=== PATIENT | female | born 1970 | race Caucasian/White ===

== ENCOUNTER → 2018-10-30 | Day surgery (SDC) | payer OTHER ==
[~2018-10-30] MED LIST: ATENOLOL50 MG PO; BENICAR20 MG PO; ESMOLOL HCL 100MG/10ML 10 MG/ML VIAL ONE; FENTANYL CITRATE/PF 100MCG/2 ML INJ ONE; HYOSCYAMINE SULFATE 0.5 MG/ML INJ ONE; LEVOTHYROXINE50 MCG PO; LIDOCAINE HCL 2% LOCAL INJ 5 ML SDV VIAL INJ ONE; MIDAZOLAM HCL 2 MG/2 ML VIAL ONE; PROPOFOL IV EMULSION 10 MG/ML 50 ML VIAL ONE; VIT C PO; VIT D PO
[2018-10-30 15:30] VITALS: BP 111/72
--- NOTE | 2018-10-30 16:36 | Operative Report ---
DATE OF PROCEDURE: 10/30/2018 SURGEON: Jaun Valiente MD PROCEDURE: Colonoscopy and polypectomy. INDICATION FOR COLONOSCOPY: Colorectal cancer screening. MEDICATIONS: The patient was done under MAC, please see anesthesiologist's note. PROCEDURE IN DETAIL: With the patient in left lateral decubitus position, the flexible fiberoptic Olympus colonoscope was inserted into the rectum with ease and advanced all the way to the cecum. It was then withdrawn slowly. Mucosa overlying the cecum and ascending colon appeared to be within normal limits. Two polyps were removed per cold snare polypectomy and the descending appeared to be within normal limits. One polyp was removed per snare electrocautery and three polyps were hot biopsied from the sigmoid. The rectum appeared to be within normal limits. The scope was then retroflexed into the distal rectum and small internal hemorrhoids were noted, none of which was actively bleeding. The scope was then straightened out, it was subsequently withdrawn. The patient tolerated the procedure well. IMPRESSION: 1. Transverse colon polyps x2, removed per cold snare polypectomy. 2. Sigmoid colon polyps x4, one snared and three hot biopsied. 3. Internal hemorrhoids, none actively bleeding. PLAN: Follow up histology. Initiate high-fiber, low-fat diet. Initiate high-fiber supplement. The patient might benefit from a followup colonoscopy in 3 years. A total of 6 polyps were removed. Jaun Valiente MD [facility] [place] /[id number] cc: Purnima Umana MD
--- OUTSIDE RECORDS SUMMARY | 2018-11-02 11:57 | XMS REPORT | Clinical Summary ---
Author Author [facility] Organization [facility] Address Unknown Phone Unavailable Care Team Providers Care Hand Welt Butter Name Role Phone Purnima Umana MD PCP Allergies No Known Allergies Medications End Date Status Medication Sig Dispensed Refills Start Date Active atenolol (TENORMIN) 25 MG Take 25 mg by 0 tablet mouth daily. Active valsartan-hydrochlorothia Take 1 tablet 0 zide (DIOVAN HCT) 80-12.5 by mouth mg per tablet daily. Active Problems No known active problems Family History Medical History Relation Name Comments Hypertension Brother Hypertension Mother Hypertension Sister Relation Name Status Comments Brother Mother Sister Social History Date Tobacco Use Types Packs/Day Years Used Never Smoker Smokeless Tobacco: Never Used Alcohol Use Drinks/Week oz/Week Comments Yes SOCIAL Sex Assigned at Date Recorded Not on file Industry Job Start Date Occupation Not on file Not on file Not on file Travel End Travel History Travel Start No recent travel history available. Last Filed Vital Signs Not on file Plan of Treatment Health Maintenance Due Date Last Done Comments COLON CANCER SCREENING 2018 SHINGLES VACCINES (#1) 2018 BREAST CANCER SCREENING 07/03/2018 07/03/2016, 10/03/2015, 10/03/2015, Additional history exists INFLUENZA VACCINE 01/06/2019 Results Not on fileafter 11/01/2017 Insurance Type Payer Benefit Subscriber ID Effective Phone Address Plan / Dates Group PPO BCBS BCBS xxxxxxxxxxxxxxx [id number] CHOICE resent PPO/REN BARRIOS PPO Advance Directives Patient has advance care planning documents on file. For more information, kash keyes contact: Andrea Rodrigues [address] [facility] [place] [address]
--- NOTE | 2018-11-08 05:31 | Progress Note ---
DATE: MD CIAAR Singh /[id number]
== END | disposition home or self-care (01) ==
LOC: OR 10:20
PROVIDERS: ATTEND Internal Medicine Gastroenterology
DX: Z12.11 Encounter for screening for malignant neoplasm of colon (principal); K63.5 Polyp of colon; K64.8 Other hemorrhoids; K62.5 Hemorrhage of anus and rectum; E03.9 Hypothyroidism, unspecified; I10 Essential (primary) hypertension; Z01.810 Encounter for preprocedural cardiovascular examination; Z68.27 Body mass index [BMI] 27.0-27.9, adult
CPT/HCPCS: 45384; 45385; 81025; 93005; J1980; J2001; J2250; J2704

== ENCOUNTER → 2023-09-28 | Day surgery (SDC) | payer OTHER ==
[~2023-09-28] MED LIST changes: +ALLOPURINOL100 MG PO; +AMLODIPINE BESYL5 MG PO; +DEXMEDETOMIDINE HCL 200 MCG/2 ML VIAL ONE; -ESMOLOL HCL 100MG/10ML 10 MG/ML VIAL ONE; -FENTANYL CITRATE/PF 100MCG/2 ML INJ ONE; -HYOSCYAMINE SULFATE 0.5 MG/ML INJ ONE; +LACTATED RINGER'S 1,000 ML ONE; -MIDAZOLAM HCL 2 MG/2 ML VIAL ONE; +PROPOFOL IV EMULSION 10 MG/ML 50 ML VIAL IV ONE; -PROPOFOL IV EMULSION 10 MG/ML 50 ML VIAL ONE
[2023-09-28 15:40] VITALS: TEMP 97.8
[2023-09-28 16:00] VITALS: BP 108/66; PULSE 61; RESP 18; O2SAT 99
== END | disposition home or self-care (01) ==
LOC: OR 13:14
PROVIDERS: ATTEND Internal Medicine Gastroenterology
DX: Z09 Encounter for follow-up examination after completed treatment for conditions other than malignant neoplasm (principal); Z86.010 Personal history of colon polyps; R14.0 Abdominal distension (gaseous); K64.8 Other hemorrhoids; Z71.3 Dietary counseling and surveillance; I10 Essential (primary) hypertension; E66.01 Morbid (severe) obesity due to excess calories; E03.9 Hypothyroidism, unspecified; N39.0 Urinary tract infection, site not specified; M10.9 Gout, unspecified; Z01.810 Encounter for preprocedural cardiovascular examination; Z79.899 Other long term (current) drug therapy; Z68.33 Body mass index [BMI] 33.0-33.9, adult; Z80.0 Family history of malignant neoplasm of digestive organs
CPT/HCPCS: 45378; 93005; J2001; J2704; J7121